=== PATIENT | female | born 1985 | race Caucasian/White ===

== ENCOUNTER 2018-03-22 18:19 | Emergency (ER) | payer SELFPAY ==
--- NOTE | 2018-03-22 20:29 | RAD REPORT ---
EXAM DESCRIPTION: RAD - Hand Right 3 View - 03/22/2018 7:40 pm CLINICAL HISTORY: Pain;Swelling<Reason For Exam>Pain;Swelling Blunt force trauma to the hand COMPARISON: No comparisons<Comparisons> FINDINGS: Distal fifth metacarpal fracture is present involving the head. There is a significant 70 degree ventral angulation deformity. No pathologic bone process. Soft tissue swelling is present. No fracture of the fifth digit. Remainder the hand shows no fracture or acute finding. No foreign body. IMPRESSION: Distal fifth metacarpal fracture with significant ventral angulation deformity.
--- NOTE | 2018-03-22 20:37 | EDPHYS ---
Physician Documentation [facility] Name: Sara Gonzalez Age: 32 yrs Sex: Female : 1985 Arrival Date: 03/22/2018 Time: 18:23 Bed 15 Private MD: ED Physician Vaughn Buck HPI: 03/22 19:49 This 32 yrs old Female presents to ER via Ambulatory with complaints of Right pm1 Hand Injury. 19:49 The patient or guardian reports deformity, pain, swelling, tenderness. The complaints pm1 affect the MCP of right little finger. Context: The problem was sustained at home, resulted from Punching wall with right hand. Onset: The symptoms/episode began/occurred 2 week(s) ago. Modifying factors: The symptoms are alleviated by ice/coldpack to affected area, the symptoms are aggravated by movement, touching. Associated signs and symptoms: Pertinent negatives: cyanosis distally, decreased sensation distally, numbness distally, tingling distally. Severity of symptoms: in the emergency department the symptoms have improved. The patient has not experienced similar symptoms in the past. The patient has not recently seen a physician. Patient punched wall out of anger 2 weeks ago. Patient's swelling has improved with ice. 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 - Social history:: Smoking status: Patient/guardian denies using tobacco. - Ebola Screening: : No symptoms or risks identified at this time. ROS: 19:49 Constitutional: Negative for fever, chills, and weight loss, Eyes: Negative for injury, pm1 pain, redness, and discharge, ENT: Negative for injury, pain, and discharge, Neck: Negative for injury, pain, and swelling, Cardiovascular: Negative for chest pain, palpitations, and edema, Respiratory: Negative for shortness of breath, cough, wheezing, and pleuritic chest pain, Abdomen/GI: Negative for abdominal pain, nausea, vomiting, diarrhea, and constipation, Back: Negative for injury and pain. 19:49 Skin: Negative for injury, rash, and discoloration, Neuro: Negative for headache, weakness, numbness, tingling, and seizure. 19:49 MS/extremity: Positive for deformity, pain, swelling, tenderness, of the MCP of right little finger. Exam: 19:49 Constitutional: This is a well developed, well nourished patient who is awake, alert, pm1 and in no acute distress. Head/Face: Normocephalic, atraumatic. Neck: Trachea midline, no thyromegaly or masses palpated, and no cervical lymphadenopathy. Supple, full range of motion without nuchal rigidity, or vertebral point tenderness. No Meningismus. Chest/axilla: Normal chest wall appearance and motion. Nontender with no deformity. No lesions are appreciated. Cardiovascular: Regular rate and rhythm with a normal S1 and S2. No gallops, murmurs, or rubs. Normal PMI, no JVD. No pulse deficits. Respiratory: Lungs have equal breath sounds bilaterally, clear to auscultation and percussion. No rales, rhonchi or wheezes noted. No increased work of breathing, no retractions or nasal flaring. Back: No spinal tenderness. No costovertebral tenderness. Full range of motion. Skin: Warm, dry with normal turgor. Normal color with no rashes, no lesions, and no evidence of cellulitis. 19:49 Musculoskeletal/extremity: Extremities: grossly normal except: noted in the MCP of right little finger: swelling, tenderness, brisk capillary refill to 5th right finger. the right little finger Sensation intact. 19:49 Neuro: Orientation: is normal, Motor: is normal, moves all fours, Sensation: is normal, no obvious gross deficits. Vital Signs: 18:45 BP 140 / 102; Pulse 83; Resp 18; Temp 98.2; Pulse Ox 100% ; Weight 45.36 kg; Height 4 sv ft. 10 in. (147.32 cm); Pain 0/10; 20:09 BP 126 / 88; Pulse 82; Resp 16; Pulse Ox 99% on R/A; lp1 18:45 Body Mass Index 20.90 (45.36 kg, 147.32 cm) sv MDM: 19:06 Patient medically screened. pm1 19:55 Data reviewed: vital signs. Data interpreted: Pulse oximetry: on room air is 100 %. pm1 Interpretation: normal. Counseling: I had a detailed discussion with the patient and/or guardian regarding: the historical points, exam findings, and any diagnostic results supporting the discharge/admit diagnosis, radiology results, the need for outpatient follow up, for definitive care, a hand specialist. 03/22 18:46 Order name: Hand Right 3 View XRAY 03/22 19:27 Order name: Ulnar Gutter splint; Complete Time: 20:09 pm1 Administered Medications: No medications were administered Disposition: 03/23 08:09 Co-signature as Attending Physician, Vaughn Buck MD. rn Disposition: 03/22/18 19:57 Discharged to Home. Impression: Displaced fracture of neck of fifth metacarpal bone, right hand. - Condition is Stable. - Discharge Instructions: Boxer's Fracture, Cast or Splint Care, Adult. - Prescriptions for Tramadol 50 mg Oral Tablet - take 1 tablet by ORAL route every 8 hours as needed; 12 tablet. - Medication Reconciliation Form, Thank You Letter, Prescription Opioid Use form. - Follow up: Emergency Department; When: As needed; Reason: Worsening of condition. Follow up: Kurt Carvalho MD; When: 2 - 3 days; Reason: Recheck today's complaints, Continuance of care, Re-evaluation by your physician. - Problem is new. - Symptoms have improved. Signatures: Dispatcher [employer] Yamileth Lauren, RN NAPOLEON Vaughn Buck MD MD rn Pena, Laura, RN RN lp1 Mehrdad Cason, UX DEVELOPER DESIGNER UX DEVELOPER DESIGNER pm1 Corrections: (The following items were deleted from the chart) 03/22 20:09 19:57 03/22/2018 19:57 Discharged to Home. Impression: Displaced fracture of neck of lp1 fifth metacarpal bone, right hand. Condition is Stable. Forms are Medication Reconciliation Form, Thank You Letter, Antibiotic Education, Prescription Opioid Use. Follow up: Emergency Department; When: As needed; Reason: Worsening of condition. Follow up: Kurt Carvalho; When: 2 - 3 days; Reason: Recheck today's complaints, Continuance of care, Re-evaluation by your physician. Problem is new. Symptoms have improved. pm1
--- NOTE | 2018-03-22 20:37 | ER ---
Nurse's Notes [facility] Name: Sara Gonzalez Age: 32 yrs Sex: Female : 1985 Arrival Date: 03/22/2018 Time: 18:23 Bed 15 Private MD: Diagnosis: Displaced fracture of neck of fifth metacarpal bone, right hand Presentation: 03/22 18:44 Presenting complaint: Patient states: right hand pain after hitting the wall. sv Transition of care: patient was not received from another setting of care. Onset of symptoms was March 08, 2018. Care prior to arrival: None. 18:44 Method Of Arrival: Ambulatory sv 18:44 Acuity: JOSEF 4 sv 20:00 Risk Assessment: Do you want to hurt yourself or someone else? Patient reports no lp1 desire to harm self or others. Initial Sepsis Screen: Does the patient meet any 2 criteria? No. Patient's initial sepsis screen is negative. 20:00 Initial Sepsis Screen: Does the patient have a suspected source of infection? No. lp1 Patient's initial sepsis screen is negative. Triage Assessment: 18:46 General: Appears in no apparent distress. comfortable, Behavior is calm, cooperative, sv appropriate for age. Pain: Denies pain. EENT: No signs and/or symptoms were reported regarding the EENT system. Neuro: Level of Consciousness is awake, alert, obeys commands, Oriented to person, place, time, situation, Moves all extremities. Full function Gait is steady. Respiratory: Respiratory effort is even, unlabored, Respiratory pattern is regular, symmetrical. Derm: Skin is pink, warm \T\ dry. Musculoskeletal: Range of motion: intact in all extremities, Swelling present in right hand. 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 - Social history:: Smoking status: Patient/guardian denies using tobacco. - Ebola Screening: : No symptoms or risks identified at this time. Screenin:00 Abuse screen: Denies threats or abuse. Denies injuries from another. Nutritional lp1 screening: No deficits noted. Tuberculosis screening: No symptoms or risk factors identified. Fall Risk None identified. Assessment: 20:08 General: Appears uncomfortable. Pain: Complains of pain in dorsum of right hand. Neuro: lp1 No deficits noted. Cardiovascular: No deficits noted. Respiratory: No deficits noted. GI: No deficits noted. : No deficits noted. EENT: No deficits noted. Derm: Skin is pink, warm \T\ dry. Musculoskeletal: Reports pain in dorsum of right hand. Vital Signs: 18:45 BP 140 / 102; Pulse 83; Resp 18; Temp 98.2; Pulse Ox 100% ; Weight 45.36 kg; Height 4 sv ft. 10 in. (147.32 cm); Pain 0/10; 20:09 BP 126 / 88; Pulse 82; Resp 16; Pulse Ox 99% on R/A; lp1 18:45 Body Mass Index 20.90 (45.36 kg, 147.32 cm) sv ED Course: 18:23 Patient arrived in ED. es 18:44 Triage completed. sv 18:46 Arm band placed on left wrist. sv 18:46 X-ray ordered. sv 19:06 Mehrdad Cason NP is PHCP. pm1 19:06 Vaughn Buck MD is Attending Physician. pm1 19:38 Hand Right 3 View XRAY In Process Unspecified. EDMS 19:55 Kurt Carvalho MD is Referral Physician. pm1 20:01 Patient has correct armband on for positive identification. lp1 20:01 No provider procedures requiring assistance completed. Patient did not have IV access lp1 during this emergency room visit. 20:09 Orthoglass splint: Ulnar gutter/Boxer splint applied on right forearm. cc1 Administered Medications: No medications were administered Outcome: 19:57 Discharge ordered by . pm1 20:09 Discharged to home ambulatory. lp1 20:09 Condition: good 20:09 Discharge instructions given to patient, Instructed on discharge instructions, follow up and referral plans. no driving heavy equipment, Demonstrated understanding of instructions, follow-up care, medications, Prescriptions given X 1. 20:09 Patient left the ED. lp1 Signatures: Dispatcher [employer] EULALIAIL Yamileth Irizarry RN RN sv Salyer, Edna es Pena, Laura, RN RN lp1 Aron Ochoa cc1 Mehrdad Cason, JACK MACHINE OPERATOR JACK MACHINE OPERATOR pm1
== END 2018-03-22 20:09 | disposition home or self-care (01) ==
LOC: ER 18:19
DX: S62.336A Displaced fracture of neck of fifth metacarpal bone, right hand, initial encounter for closed fracture (principal); W22.01XA Walked into wall, initial encounter; Y93.89 Activity, other specified; Y92.009 Unspecified place in unspecified non-institutional (private) residence as the place of occurrence of the external cause; Z88.1 Allergy status to other antibiotic agents
CPT/HCPCS: 99283

== ENCOUNTER 2018-04-02 19:12 | Emergency (ER) | payer SELFPAY ==
[2018-04-02] MEDS ORDERED: NA CHLORIDE 0.9% 1,000 ML ONE (19:54)
[2018-04-02 20:04] LABS: Barbiturates NEGATIVE (NEGATIVE); Benzodiazepines NEGATIVE (NEGATIVE); Cocaine NEGATIVE (NEGATIVE); METHAMPHETAM POSITIVE (NEGATIVE); Methadone NEGATIVE (NEGATIVE); Opiates NEGATIVE (NEGATIVE); Phencyclidine NEGATIVE (NEGATIVE); THC Cannibis NEGATIVE (NEGATIVE)
[2018-04-02] MEDS ORDERED: LORazepam 2 MG/ML VIAL ONE (20:10)
[2018-04-02 20:13] LABS: Urine Blood NEGATIVE (NEG); Urine Glucose NEGATIVE (NEG); Urine Protein NEGATIVE (NEG); Urine pH 5.5 (5.0-7.0)
[2018-04-02 20:19] LABS: Absolute Lymphocytes (CBC) 2.7 K/uL (0.7-4.9); Absolute Monocytes 0.5 K/uL (0.1-1.3); Absolute Neutrophil 3.1 K/uL (1.8-8.0); Basophils % 0.8 % (0-1.3); Eosinophils % 0.9 % (0-4.4); Hematocrit 42.5 % (36.0-45.0); Lymphocytes % 42.2 % (15.3-44.8); MCH 31.1 pg (27.0-35.0); MCV 90.1 fL (80-100); MPV 8.4 fL (7.6-11.3); Monocytes % 7.8 % (3.3-12.3); RBC Red Blood Cell Count 4.72 M/uL (3.86-4.86)
[2018-04-02 20:28] LABS: Protime INR 0.98
[2018-04-02 20:40] LABS: ALT/SGPT 50 U/L (12-78); AST/SGOT 24 U/L (15-37); Albumin 3.8 g/dL (3.4-5.0); Alkaline Phosphatase 64 U/L (45-117); BUN Blood Urea Nitrogen 13 mg/dL (7-18); Bicarbonate 27 mmol/L (21-32); Bilirubin Direct < 0.1 mg/dL (0-0.2); Bilirubin Total 0.2 mg/dL (0.2-1.0); CKMB Creatine Kinase MB 1.3 ng/mL (0.3-3.6); Creatine Phosphokinase 62 U/L (26-192); Glucose Level 110 mg/dL (74-106); Magnesium 2.2 mg/dL (1.8-2.4); NT PRO-BNP 14 pg/mL (<125); Potassium 3.9 mmol/L (3.5-5.1); Protein, Total 7.2 g/dL (6.4-8.2); Sodium Level 140 mmol/L (136-145); Troponin (Emerg Dept Use Only) < 0.02 ng/mL (0.0-0.045)
--- NOTE | 2018-04-02 20:52 | ER ---
Nurse's Notes [facility] Name: Sara Gonzalez Age: 32 yrs Sex: Female : 1985 Arrival Date: 04/02/2018 Time: 19:13 Bed 17 Private MD: Diagnosis: Substance abuse. Palpitations. Anxiety disorder Presentation: 04/02 19:20 Presenting complaint: Patient states: She has been very fatigued and having aj1 palpitations. Reports she has also been abusing methamphetamine and she quit take Cymbalta cold turkey. Reports she had had a lot of anxiety. Denies chest pain. Reports SOB on exertion. Transition of care: patient was not received from another setting of care. Onset of symptoms was February 2018. Risk Assessment: Do you want to hurt yourself or someone else? Patient reports no desire to harm self or others. Initial Sepsis Screen: Does the patient meet any 2 criteria? HR > 90 bpm. No. Patient's initial sepsis screen is negative. Does the patient have a suspected source of infection? No. Patient's initial sepsis screen is negative. Care prior to arrival: None. 19:20 Method Of Arrival: Ambulatory [facility] 19:20 Acuity: JOSEF 3 aj1 Triage Assessment: 19:26 General: Appears uncomfortable, Behavior is cooperative, anxious. Pain: Denies pain. aj1 Neuro: Level of Consciousness is awake, alert, obeys commands. Cardiovascular: Reports palpitations, shortness of breath, Patient's skin is warm and dry. Respiratory: Reports shortness of breath on exertion Airway is patent Respiratory effort is even, unlabored, Respiratory pattern is regular, symmetrical. Derm: Skin is pink, warm \T\ dry. normal. 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 - Social history:: Smoking status: Patient/guardian denies using tobacco, Patient uses street drugs, Methamphetamine (Meth). - Ebola Screening: : Patient denies travel to an Ebola-affected area in the 21 days before illness onset. Screenin:38 Abuse screen: Denies threats or abuse. Denies injuries from another. Nutritional lp1 screening: No deficits noted. Tuberculosis screening: No symptoms or risk factors identified. Fall Risk None identified. Assessment: 19:36 General: Appears in no apparent distress. Behavior is cooperative, anxious. Pain: lp1 Denies pain. Neuro: Level of Consciousness is awake, alert, obeys commands, Oriented to person, place, time, situation, Gait is steady, Speech is normal, Pupils are PERRLA. Cardiovascular: Patient's skin is warm and dry. Respiratory: Respiratory effort is even, unlabored, Respiratory pattern is regular, Breath sounds are clear bilaterally. GI: Abdomen is flat. : No signs and/or symptoms were reported regarding the genitourinary system. EENT: No signs and/or symptoms were reported regarding the EENT system. Derm: Skin is pink, warm \T\ dry. Musculoskeletal: No deficits noted. 20:51 Reassessment: Patient appears in no apparent distress at this time. Patient is alert, lp1 oriented x 3, equal unlabored respirations, skin warm/dry/pink. Patient states feeling better. Patient states symptoms have improved. Vital Signs: 19:26 BP 143 / 108; Pulse 122; Resp 20; Temp 97.4(O); Pulse Ox 100% on R/A; Weight 39.92 kg aj1 (R); Height 4 ft. 10 in. (147.32 cm) (R); 20:09 BP 145 / 94; Pulse 100; Resp 16; Pulse Ox 99% on R/A; lp1 20:51 BP 135 / 90; Pulse 92; Resp 16; Pulse Ox 100% on R/A; lp1 19:26 Body Mass Index 18.39 (39.92 kg, 147.32 cm) aj1 ED Course: 19:13 Patient arrived in ED. es 19:25 Triage completed. aj1 19:26 Arm band placed on Patient placed in an exam room. aj1 19:29 Pj Dc MD is Attending Physician. pkl 19:33 Alla Ghosh, NAPOLEON is Primary Nurse. lp1 19:38 Patient has correct armband on for positive identification. Pulse ox on. NIBP on. lp1 19:50 Urine collected: clean catch specimen, clear. lp1 19:53 Initial lab(s) drawn, by az, sent to lab. Inserted saline lock: 20 gauge in left cc antecubital area, using aseptic technique. Blood collected. 20:02 EKG done, by ED staff, reviewed by Pj Dc MD. cc 20:17 X-ray completed. Portable x-ray completed in exam room. Patient tolerated procedure tm4 well. 20:18 XRAY Chest (1 view) In Process Unspecified. EDMS 20:47 No provider procedures requiring assistance completed. lp1 21:00 IV discontinued, No redness/swelling at site. Pressure dressing applied. lp1 Administered Medications: 19:51 CANCELLED (Duplicate Order): NS 0.9% 1000 ml IV at 100 ml/hr once lp1 20:08 Drug: NS 0.9% 500 ml Route: IV; Rate: bolus; Site: left antecubital; lp1 20:40 Follow up: IV Status: Completed infusion; IV Intake: 500ml lp1 20:08 Drug: Ativan 0.5 mg Route: IVP; Site: left antecubital; lp1 20:46 Follow up: Response: Marked relief of symptoms lp1 20:40 Drug: NS 0.9% 1000 ml Route: IV; Rate: 100 ml/hr; Site: left antecubital; lp1 20:59 Follow up: IV Status: IV converted to saline lock; IV Intake: 100ml lp1 Intake: 20:40 IV: 500ml; Total: 500ml. lp1 20:59 IV: 100ml; Total: 600ml. lp1 Outcome: 20:51 Discharge ordered by . pkl 21:00 Discharged to home ambulatory, with family. lp1 21:00 Condition: good 21:00 Discharge instructions given to patient, Instructed on discharge instructions, follow up and referral plans. medication usage, Demonstrated understanding of instructions, follow-up care, medications, Prescriptions given X 1. 21:00 Patient left the ED. lp1 Signatures: Dispatcher [employer] Jenniffer Da Silva, RN RN Pj Sánchez MD MD pkAnyi Tejada Tracy tm4 Dilia Doty Laura, RN RN lp1
--- NOTE | 2018-04-02 20:52 | EDPHYS ---
Physician Documentation [facility] Name: Sara Gonzalez Age: 32 yrs Sex: Female : 1985 Arrival Date: 04/02/2018 Time: 19:13 Bed 17 Private MD: ED Physician Pj Dc HPI: 04/02 19:40 This 32 yrs old Female presents to ER via Ambulatory with complaints of pkl General Weakness, Palpitations. 19:40 The patient presents with a history of heart racing. Onset: The symptoms/episode pkl began/occurred today. Associated signs and symptoms: Pertinent positives: SOB. Patient said she has abusing methamphetamine for about 1 month and she also stopped taking Cymbalta.. 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 - Social history:: Smoking status: Patient/guardian denies using tobacco, Patient uses street drugs, Methamphetamine (Meth). - Ebola Screening: : Patient denies travel to an Ebola-affected area in the 21 days before illness onset. ROS: 19:40 Eyes: Negative for injury, pain, redness, and discharge, ENT: Negative for injury, pkl pain, and discharge, Neck: Negative for injury, pain, and swelling. 19:40 Cardiovascular: Positive for palpitations. 19:40 Respiratory: Positive for shortness of breath. 19:40 Abdomen/GI: Negative for abdominal pain, nausea, vomiting, and diarrhea. 19:40 Back: Negative for pain at rest, acute changes. 19:40 : Negative for urinary symptoms. 19:40 MS/extremity: Negative for acute changes. 19:40 Skin: Negative for rash. 19:40 Neuro: Negative for altered mental status. Exam: 19:40 Head/Face: Normocephalic, atraumatic. Eyes: Pupils equal round and reactive to light, pkl extra-ocular motions intact. Lids and lashes normal. Conjunctiva and sclera are non-icteric and not injected. Cornea within normal limits. Periorbital areas with no swelling, redness, or edema. ENT: Nares patent. No nasal discharge, no septal abnormalities noted. Tympanic membranes are normal and external auditory canals are clear. Oropharynx with no redness, swelling, or masses, exudates, or evidence of obstruction, uvula midline. Mucous membranes moist. Neck: Trachea midline, no thyromegaly or masses palpated, and no cervical lymphadenopathy. Supple, full range of motion without nuchal rigidity, or vertebral point tenderness. No Meningismus. Chest/axilla: Normal chest wall appearance and motion. Nontender with no deformity. No lesions are appreciated. 19:40 Cardiovascular: Rate: tachycardic, actual rate is 122 bpm, Rhythm: regular. 19:40 Respiratory: the patient does not display signs of respiratory distress, Respirations: normal, Breath sounds: are clear throughout. 19:40 Abdomen/GI: Bowel sounds: normal, Palpation: abdomen is soft and non-tender, in all quadrants. 19:40 Back: Exam negative for acute changes. 19:40 : Exam negative for acute changes. 19:40 Musculoskeletal/extremity: Exam is negative for acute changes. 19:40 Skin: Exam negative for rash. 19:40 Neuro: Orientation: is normal, Mentation: is normal, Cranial nerves: grossly normal, Motor: is normal. Vital Signs: 19:26 BP 143 / 108; Pulse 122; Resp 20; Temp 97.4(O); Pulse Ox 100% on R/A; Weight 39.92 kg aj1 (R); Height 4 ft. 10 in. (147.32 cm) (R); 20:09 BP 145 / 94; Pulse 100; Resp 16; Pulse Ox 99% on R/A; lp1 20:51 BP 135 / 90; Pulse 92; Resp 16; Pulse Ox 100% on R/A; lp1 19:26 Body Mass Index 18.39 (39.92 kg, 147.32 cm) aj MDM: 19:29 Patient medically screened. pkl 20:50 Data reviewed: vital signs, nurses notes, lab test result(s), EKG, radiologic studies, pkl plain films. 04/02 19:38 Order name: Basic Metabolic Panel; Complete Time: 21:01 pkl 04/02 19:38 Order name: CBC with Diff; Complete Time: 20:32 pkl 04/02 19:38 Order name: Ckmb; Complete Time: 21:01 pkl 04/02 19:38 Order name: CPK; Complete Time: 21:01 pkl 04/02 19:38 Order name: LFT's; Complete Time: 21:01 pkl 04/02 19:38 Order name: Magnesium; Complete Time: 21:01 pkl 04/02 19:38 Order name: NT PRO-BNP; Complete Time: 21:01 pkl 04/02 19:38 Order name: PT-INR; Complete Time: 20:32 pkl 04/02 19:38 Order name: Ptt, Activated; Complete Time: 20:32 pkl 04/02 19:38 Order name: Troponin (emerg Dept Use Only); Complete Time: 21:01 pkl 04/02 19:38 Order name: UDS; Complete Time: 20:32 pkl 04/02 19:39 Order name: TSH; Complete Time: 21:01 pkl 04/02 19:57 Order name: Urine Dipstick--Ancillary (enter results); Complete Time: 20:32 aa1 04/02 19:38 Order name: XRAY Chest (1 view); Complete Time: 21:01 pkl 04/02 19:38 Order name: EKG; Complete Time: 19:39 pkl 04/02 19:38 Order name: Cardiac monitoring; Complete Time: 19:51 pkl 04/02 19:38 Order name: EKG - Nurse/Tech; Complete Time: 19:59 pkl 04/02 19:38 Order name: IV Saline Lock; Complete Time: 19:59 pkl 04/02 19:38 Order name: Labs collected and sent; Complete Time: 19:59 pkl 04/02 19:38 Order name: O2 Per Protocol; Complete Time: 19:51 pkl 04/02 19:38 Order name: O2 Sat Monitoring; Complete Time: 19:51 pkl 04/02 19:38 Order name: Urine Dipstick-Ancillary (obtain specimen); Complete Time: 19:51 pkl 04/02 19:57 Order name: Urine --Ancillary (enter results); Complete Time: 20:32 aa1 04/02 20:10 Order name: D-Dimer; Complete Time: 20:32 EDMS 04/02 20:43 Order name: T4 Free; Complete Time: 21:01 EDMA Administered Medications: 19:51 CANCELLED (Duplicate Order): NS 0.9% 1000 ml IV at 100 ml/hr once lp1 20:08 Drug: NS 0.9% 500 ml Route: IV; Rate: bolus; Site: left antecubital; lp1 20:40 Follow up: IV Status: Completed infusion; IV Intake: 500ml lp1 20:08 Drug: Ativan 0.5 mg Route: IVP; Site: left antecubital; lp1 20:46 Follow up: Response: Marked relief of symptoms lp1 20:40 Drug: NS 0.9% 1000 ml Route: IV; Rate: 100 ml/hr; Site: left antecubital; lp1 20:59 Follow up: IV Status: IV converted to saline lock; IV Intake: 100ml lp1 Disposition: 04/02/18 20:51 Discharged to Home. Impression: Substance abuse. Palpitations. Anxiety disorder. - Condition is Stable. - Prescriptions for Ativan 0.5 mg Oral Tablet - take 1 tablet by ORAL route 2 times per day As needed; 10 tablet. - Medication Reconciliation Form, Thank You Letter, Antibiotic Education, Prescription Opioid Use form. - Follow up: Private Physician; When: 2 - 3 days; Reason: Re-evaluation by your physician. - Problem is new. - Symptoms have improved. Signatures: Dispatcher [employer] [facility] Jenniffer Dee RN RN aj1 Pj Dc MD MD pkl Alla Ghosh RN RN lp1 Corrections: (The following items were deleted from the chart) 19:51 19:38 NS 0.9% 1000 ml IV at 100 ml/hr once ordered. pkl lp1 20:09 19:40 D-DIMER+COAG.LAB.BRZ ordered. [facility] 21:00 20:51 04/02/2018 20:51 Discharged to Home. Impression: Substance abuse. Palpitations. lp1 Anxiety disorder. Condition is Stable. Forms are Medication Reconciliation Form, Thank You Letter, Antibiotic Education, Prescription Opioid Use. Follow up: Private Physician; When: 2 - 3 days; Reason: Re-evaluation by your physician. Problem is new. Symptoms have improved. pkl
--- NOTE | 2018-04-02 20:53 | RAD REPORT ---
EXAM DESCRIPTION: RAD - Chest Single View - 04/02/2018 8:18 pm CLINICAL HISTORY: Arrhythmia, shortness of breath COMPARISON: None. TECHNIQUE: AP portable chest image was obtained 2014 hours . FINDINGS: Lungs are clear. Heart and vasculature are normal. No measurable pleural effusion and no p neumothorax. No gross bony abnormality seen. No acute aortic findings suspected. IMPRESSION: No acute cardiopulmonary process.
--- NOTE | 2018-04-03 07:02 | EKG ---
Test Date: 2018-04-02 Test Time: 20:01:11 Pmo Consultant: GILBERT MEASUREMENT RESULTS: Intervals: Rate: 93 ME: 116 QRSD: 82 QT: 348 QTc: 432 Grayling: P: 83 ME: 116 QRS: 82 T: 73 INTERPRETIVE STATEMENTS: Normal sinus rhythm Normal ECG No previous ECG available for comparison Electronically Signed On 04-03-18 07:01:01 CDT by Helder Weems
== END 2018-04-02 21:00 | disposition home or self-care (01) ==
LOC: ER 19:12
DX: F15.10 Other stimulant abuse, uncomplicated (principal); F41.9 Anxiety disorder, unspecified; R00.2 Palpitations; Z88.1 Allergy status to other antibiotic agents
CPT/HCPCS: 36415; 71045; 80048; 80076; 80307; 81003; 81025; 82550; 82553; 83735; 83880; 84439; 84443; 84484; 85025; 85379; 85610; 85730; 93005; 96361; 96374; 99284; J7030

== ENCOUNTER 2025-03-14 04:01 | Emergency (ER) | payer SELFPAY ==
--- NOTE | 2025-03-14 06:29 | RAD REPORT ---
EXAMINATION: XR SHOULDER 2 OR MORE VIEWS RIGHT INDICATION: 39 years old Female 1985 Right shoulder X - ray. COMPARISON(S): None. TECHNIQUE: 2 views X-ray of the right shoulder was performed. FINDINGS: Osseous Structures: There is normal anatomic alignment. There are no acute fractures. Joint Spaces: Joint spaces are preserved. Bone Mineralization: Normal bone mineralization. Soft Tissues: No soft tissue abnormality. IMPRESSION: No significant abnormality identified. Electronically signed by: Aneudy Lynn MD 03/14/2025 06:24 AM CDT Due to temporary technical issues with the PACS/[email or web address] reporting system, reports are being lory d by the in-house radiologist without review as a courtesy to ensure prompt reporting. The interpreting radiologist is fully responsible for the content of the report. Transcribed Date/Time: 03/14/2025 6:29 AM
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
--- NOTE | 2025-03-14 06:48 | RAD REPORT ---
EXAMINATION: CT HEAD AND CERVICAL SPINE WITHOUT CONTRAST INDICATION: 39 years old Female 1985 Facial pain. COMPARISON(S): None. TECHNIQUE: Axial CT images from the skull base to the vertex were obtained. Sagittal and coronal re formatted images were created from the data set. One or more of the following dose reduction techniques were used: Automated exposure control, adjustment of the mA and/or kV according to patient size, and/or iterative reconstruction. CONTRAST: As stated in examination. FINDINGS: INTRACRANIAL: No acute intracranial hemorrhage or extraaxial collection. No abnormal brain parenchyma l density. No evidence of acute infarction. The ventricles are normal in size and morphology. No mass or midline shift. VASCULATURE: No visualized abnormalities in the arteries or dural venous sinuses. SCALP/SKULL: No significant soft tissue or osseous abnormalities. SINUSES: The visualized paranasal sinuses and mastoid air cells are predominantly clear. ORBITS: No significant abnormalities in the visualized orbital structures. IMPRESSION: No acute intracranial abnormality. EXAMINATION: CT HEAD AND CERVICAL SPINE WITHOUT CONTRAST INDICATION: 39 years old Female 1985 Facial pain. COMPARISON(S): None. TECHNIQUE: Axial CT images of the cervical spine were obtained. Sagittal and coronal reformatted imag es were created from the data set. One or more of the following dose reduction techniques were used: Automated exposure control, adjustment of the mA and/or kV according to patient size, and/or it erative reconstruction. CONTRAST: As stated in examination. FINDINGS: ALIGNMENT: The imaged spine has normal alignment without scoliosis or spondylolisthesis. BONE: Vertebral body heights are maintained. No aggressive osseous lesions. DISCS: Disc heights are maintained. LEVELS: No significant spinal canal or neural foraminal stenosis. No visualized abnormality within th e spinal canal. SOFT TISSUE: No significant abnormalities in the paraspinal soft tissues. The visualized lungs are clear. IMPRESSION: No acute spine abnormalities. Electronically signed by: Aneudy Lynn MD 03/14/2025 06:26 AM CDT Due to temporary technical issues with the PACS/[employer] reporting system, reports are being lory d by the in-house radiologist without review as a courtesy to ensure prompt reporting the interpreting radiologist is fully responsible for the content of the report. Transcribed Date/Time: 03/14/2025 6:48 AM
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
--- NOTE | 2025-03-14 06:49 | RAD REPORT ---
EXAMINATION: CT CHEST ABDOMEN PELVIS WITHOUT IV CONTRAST INDICATION: 39 years old Female 1985 Spinal injury. COMPARISON(S): None. TECHNIQUE: CT chest, abdomen and pelvis. One or more of the following dose-optimizing techniques was utilized for this exam: automated exposure control, adjustment of the mA and/or kV according to patient size, and/or use of iterative reconstruction technique. CONTRAST: As stated in examination. FINDINGS: CHEST: Lungs, Tracheobronchial Structures, Pleura: Unremarkable. Bones: Unremarkable. Superior Thoracic Aperture, Axilla, Chest Wall Soft Tissues: Unremarkable. Mediastinal/Hilar Structures and Lymph Nodes: Unremarkable. Cardiomediastinal Structures: Unremarkable. ABDOMEN/PELVIS: Liver: No acute finding. Gallbladder: Normal gallbladder. Biliary: No biliary ductal dilation. Pancreas: No pancreatitis. Spleen: Normal. Adrenal glands: No acute finding. Kidneys and ureters: Punctate nonobstructing stones bilateral kidneys. Bladder: No acute finding. Reproductive organs: Normal for age. Stomach/bowel: No obstruction or focal inflammation. Appendix: No appendicitis. Lymph nodes: No lymphadenopathy. Peritoneum: No intraperitoneal free air or significant fluid. Vessels: Normal for technique. MUSCULOSKELETAL: Thoracic and Abdominal wall: No hernia or soft tissue mass. Bones: No acute osseous abnormality. IMPRESSION: Punctate renal lithiasis. No evidence of urinary tract obstruction. No acute posttraumatic findings. Electronically signed by: Aneudy Lynn MD 03/14/2025 06:28 AM CDT Due to temporary technical issues with the [employer] reporting system, reports are being lory d by the in-house radiologist without review as a courtesy to ensure prompt reporting the interpreting radiologist is fully responsible for the content of the report. Transcribed Date/Time: 03/14/2025 6:48 AM
[2025-03-14 09:05] VITALS: TEMP 98.6; O2SAT 99
[2025-03-14 09:12] VITALS: BP 124/89
== END 2025-03-14 06:51 | disposition home or self-care (01) ==
LOC: ER 04:01
DX: S16.1XXA Strain of muscle, fascia and tendon at neck level, initial encounter (principal); S43.401A Unspecified sprain of right shoulder joint, initial encounter; S00.83XA Contusion of other part of head, initial encounter; M54.50 Low back pain, unspecified; Y04.8XXA Assault by other bodily force, initial encounter
CPT/HCPCS: 36415; 70450; 70486; 71250; 72125; 74176; 76377; 84703; 99283